=== PATIENT | female | born 1965 | race Caucasian/White ===

== ENCOUNTER 2022-04-07 18:09 | Emergency (ER) | payer OTHER ==
[2022-04-07] MEDS ORDERED: PAXLOVID 300-11 EACH PO (20:42)
== END 2022-04-07 21:04 | disposition home or self-care (01) ==
LOC: ER1 18:09
DX: U07.1 COVID-19 (principal); E11.9 Type 2 diabetes mellitus without complications; E78.5 Hyperlipidemia, unspecified; K21.9 Gastro-esophageal reflux disease without esophagitis; I10 Essential (primary) hypertension; Z88.0 Allergy status to penicillin
CPT/HCPCS: 99284; U0002